=== PATIENT | female | born 1945 | race African-American/Black ===

== ENCOUNTER 2017-04-19 09:43 | Observation (INO) | payer OTHER ==
--- NOTE | 2017-04-19 09:52 | PDOC ---
Attending Attestation - Resident Resident Name: Evgeny Ventura - HPI HPI: 04/19/17 10:44 Pt presents to the ED complaining of the acute onset of tongue swelling. Patient has a history of severe allergic reactions in the past and also takes lisinopril. Patient states that she had one episode of vomiting yesterday, but denies any other associated symptoms. - Physicial Exam PE: 04/19/17 10:59 Agree with resident exam. PAtient is speaking in complete sentences without stridor. Tongue is edematous, but patient is able to open her mouth completely and I am able to see past her tongue to her uvula, which is also mildly swollen. - Critical Care Time Total Critical Care Time: 30 Critical Care Statement: The care of this patient involved high complexity decision making to prevent further life threatening deterioration of the patient 's condition and/or to evaluate & treat vital organ system(s) failure or risk of failure. - Medical Decision Making 04/19/17 11:02 Patient attributes the swelling to an allergic reaction, but given her STIVEN inhibitor use and her lack of associated symptoms, symptoms are most likely secondary to angioedema. Patient reports some improvement in her symptoms after epinephrine, benadryl and solumedrol by EMS. Will treat with pepcid and continue to monitor. given that she is able to speak in complete sentences and has no respiratory distress, and that her symptoms seem to be improving, I do not feel that she needs intubation at this time. Will continue to closely monitor in the ED and will admit for close monitoring.
--- NOTE | 2017-04-19 09:56 | PDOC ---
History of Present Illness - General Chief Complaint: Allergic Reaction Stated Complaint: ALLERGIC REACTION Time Seen by Provider: 04/19/17 09:52 - History of Present Illness Initial Comments: 04/19/17 10:10 72 yo F with h/o HTN who arrives from Urgent care with tongue swelling. Patient reports acute onset of tongue swelling this AM. States that she has had recent URI type illness for 24 hours and took Mucinex prior to going to sleep yesterday evening. Denies h/o adverse reaction to Mucinex. Also states that she has been on Lisinopril for past 2 years for HTN control. Denies SOB, Medrano, rash, wheezing, neck swelling/pain, muffled voice, lightheadedness, rash, LOC, chest pain, cough. Seen at urgent care 1 hour [employer] and received Epinephrine, Solumedrol , Diphehydramine, and NS. Swelling slightly improved. Denies h/o angioedema or intubations. Past History - Past Medical History Allergies/Adverse Reactions: Allergies Allergy/AdvReac Type Severity Reaction Status Date / Time chocolate flavor Allergy Verified 04/19/17 09:54 tomato Allergy Verified 04/19/17 09:54 Home Medications: Ambulatory Orders Aspirin 81 mg PO DAILY 04/19/17 Lisinopril [Prinivil] 5 mg PO DAILY 04/19/17 Tamoxifen Citrate 0 mg PO DAILY 04/19/17 Cancer: Yes (duong breast ca w/lumpectomy) COPD: No - Suicide/Smoking/Psychosocial Hx Smoking History: Never smoked Have you smoked in the past 12 months: No Information on smoking cessation initiated: No Hx Alcohol Use: No Drug/Substance Use Hx: No Substance Use Type: None Review of Systems - Review of Systems Comments:: 04/19/17 09:55 GENERAL/CONSTITUTIONAL: No fever or chills. No weakness. HEAD, EYES, EARS, NOSE AND THROAT: Tongue swelling. No change in vision. No ear pain or discharge. No sore throat.- CARDIOVASCULAR: No chest pain or shortness of breath RESPIRATORY: No cough, wheezing, or hemoptysis. GASTROINTESTINAL: No nausea, vomiting, diarrhea or constipation. GENITOURINARY: No dysuria, frequency, or change in urination. MUSCULOSKELETAL: No joint or muscle swelling or pain. No neck or back pain. SKIN: No rash NEUROLOGIC: No headache, vertigo, loss of consciousness, or change in strength/ sensation. ENDOCRINE: No increased thirst. No abnormal weight change HEMATOLOGIC/LYMPHATIC: No anemia, easy bleeding, or history of blood clots. ALLERGIC/IMMUNOLOGIC: No hives or skin allergy. 04/19/17 10:17 *Physical Exam - Vital Signs Last Vital Signs Temp Pulse Resp BP Pulse Ox 98 F 120 H 18 160/95 100 04/19/17 09:45 04/19/17 09:45 04/19/17 09:45 04/19/17 09:45 04/19/17 09:45 - Physical Exam Comments: 04/19/17 09:56 GENERAL: Awake, alert, and fully oriented, in no acute distress HEAD: No signs of trauma, normocephalic, atraumatic EYES: PERRLA, EOMI, sclera anicteric, conjunctiva clear ENT: Tongue and uvula swelling. Soft palate difficult to visualize.Hearing grossly normal, nares patent, oropharynx clear without exudates. Moist mucosa NECK: Absent stridor. Normal ROM, supple, no lymphadenopathy, JVD, or masses LUNGS: No distress, speaks full sentences, clear to auscultation bilaterally HEART: Regular rate and rhythm, normal S1 and S2, no murmurs, rubs or gallops, peripheral pulses normal and equal bilaterally. EXTREMITIES : Normal inspection, Normal range of motion, no edema. No clubbing or cyanosis. SKIN: Warm, Dry, normal turgor, no rashes or lesions noted. ED Treatment Course - LABORATORY CBC & Chemistry Diagram: 04/19/17 11:55 04/19/17 12:45 Medical Decision Making - Medical Decision Making 04/19/17 10:18 72 yo F with h/o HTN who arrives from Urgent care with tongue swelling this AM. Has had recent URI type illness for 24 hours and took Mucinex prior to going to sleep yesterday evening. Denies h/o adverse reaction to Mucinex. Endorses Lisinopril use for past 2 years for HTN control with absent incident of angioedema in past. Denies SOB, Medrano, rash, wheezing, neck swelling/pain, muffled voice, lightheadedness, rash, LOC, chest pain, cough. Seen at urgent care 1 hour [employer] and received Epinephrine, Solumedrol, Diphehydramine, and NS. Swelling slightly improved. Denies h/o prior intubations. Physical exam reveals tongue and uvula swelling with hard palate visualziation. Difficult to visualize soft palate. Absent neck swelling or stridor. Pulmonary exam benign. Patient midly tachycardic. Patient s/s consistent with STIVEN Inhibitor Angiodema vs. Allergic Angioedema. Will evaluate pt. for definitive airway management/ resp compromise. ED Course: CBC, CMP EKG EKG: Sinus tachycardia with absent HANNAH, STD, or TWI. Normal axis and interval durations. Anesthesiology consult. 04/19/17 13:24 Patient is speaking clear sentences, and breathing without diffculty. She does not need intubation at this time. 04/19/17 14:30 Patient admitted to inpatient Med/Surg. *DC/Admit/Observation/Transfer Diagnosis at time of Disposition: Angioedema due to angiotensin converting enzyme inhibitor (STIVEN-I) - Referrals Referrals: Johnie Petersen MD [Primary Care Provider] - - Patient Instructions - Post Discharge Activity
[2017-04-19] MEDS ORDERED: FAMOTIDINE IV 20 MG/12 ML VIAL IVPUSH ONE (10:13)
[2017-04-19] MEDS ORDERED: FAMOTIDINE 20 MG/50 ML IVPB 20 MG/50 ML MG IVPB ONE (10:15)
[2017-04-19 12:46] LABS: BASO % 0.2 % (0-2.0); HEMOGLOBIN 11.9 GM/dL (10.7-15.3); LYMPH % 9.2 % (8-40); MCH 28.6 pg (25.7-33.7); MCHC 31.4 g/dl (32.0-36.0); MEAN PLT VOLUME 9.6 fl (7.5-11.1); NEUT % 88.6 % (42.8-82.8); PLATELET COUNT 168 K/MM3 (134-434); RBC 4.17 M/mm3 (3.60-5.2); RDW 14.2 % (11.6-15.6); WHITE BLOOD COUNT 7.4 K/mm3 (4.0-10.0)
[2017-04-19 13:31] LABS: ALBUMIN 3.8 g/dl (3.4-5.0); ANION GAP 8 (8-16); BLOOD UREA NITROGEN 23 mg/dL (7-18); CALCIUM 8.5 mg/dL (8.5-10.1); CHLORIDE 109 mmol/L (98-107); CO2 25 mmol/L (21-32); CREATININE 1.3 mg/dL (0.55-1.02); GLUCOSE,RANDOM 101 mg/dL (74-106); POTASSIUM 4.4 mmol/L (3.5-5.1); SGOT/AST 14 U/L (15-37); SGPT/ALT 19 U/L (12-78); SODIUM 142 mmol/L (136-145)
[2017-04-19 13:32] LABS: ALK PHOS 53 U/L (45-117); BILIRUBIN,TOTAL 0.4 mg/dL (0.2-1.0); TOT PROT 7.9 g/dl (6.4-8.2)
[2017-04-19] MEDS ORDERED: SODIUM CHLORIDE 1,000 ML IV SCH ×2 (15:30→16:28)
[2017-04-19] MEDS ORDERED: SODIUM CHLORIDE 1,000 ML IV STA (16:28)
[2017-04-19] MEDS ORDERED: predniSONE 20 MG TABLET (UD) PO SCH (16:30)
--- NOTE | 2017-04-19 16:48 | HP ---
CHIEF COMPLAINT: tongue swelling HISTORY OF PRESENT ILLNESS: Patient is a 72 yo F with a PMHx of Breast cancer (s /p lumpectomy 2000) and HTN, came to the ED from the urgent care because of tongue swelling that started yesterday. Patient said she took mucinex last night , and 2 hours later she then took "airborne". After she took airborne she noticed the tongue swelling. Patient also ate some meat, tomatoes and potatos prior to tongue swelling. She is taking Lisinopril 5mg for 2 years. She states the urgent care gave her Epinephrine, solu-medrol, benadryl. 2 weeks ago patient had lip swelling when she ate ate potatoes. Patient denies SOB, fevers , rash, diarrhea, dizziness, chest pain and cough. She also denies exercising, bee stings, angioedema, hx of intubations and new meds. ER course was notable for: (1) Pepcid 20mg Recent Travel: n/a PAST MEDICAL HISTORY: HTN, left breast cancer in 2000 (lumpectomy), Right breast cancer 2008 (lumpectomy, on Tamoxifen) PAST SURGICAL HISTORY: n/a Social History: Smoking: denies Alcohol: occasionally Drugs: denies Family History: Allergies chocolate flavor Allergy (Verified 04/19/17 09:54) tomato Allergy (Verified 04/19/17 09:54) HOME MEDICATIONS: Home Medications Medication Instructions Recorded Aspirin 81 mg PO DAILY 04/19/17 Lisinopril [Prinivil] 5 mg PO DAILY 04/19/17 Tamoxifen Citrate 0 mg PO DAILY 04/19/17 REVIEW OF SYSTEMS CONSTITUTIONAL: Absent: fever, chills, diaphoresis, generalized weakness, malaise, loss of appetite, weight change HEENT: Absent: rhinorrhea, nasal congestion, throat pain, throat swelling, difficulty swallowing, mouth swelling, ear pain, eye pain, visual changes CARDIOVASCULAR: Absent: chest pain, syncope, palpitations, irregular heart rate, lightheadedness , peripheral edema RESPIRATORY: Absent: cough, shortness of breath, dyspnea with exertion, orthopnea, wheezing, stridor, hemoptysis GASTROINTESTINAL: Absent: abdominal pain, abdominal distension, nausea, vomiting, diarrhea, constipation, melena, hematochezia GENITOURINARY: Absent: dysuria, frequency, urgency, hesitancy, hematuria, flank pain, genital pain MUSCULOSKELETAL: Absent: myalgia, arthralgia, joint swelling, back pain, neck pain SKIN: Absent: rash, itching, pallor HEMATOLOGIC/IMMUNOLOGIC: Absent: easy bleeding, easy bruising, lymphadenopathy, frequent infections ENDOCRINE: Absent: unexplained weight gain, unexplained weight loss, heat intolerance, cold intolerance NEUROLOGIC: Absent: headache, focal weakness or paresthesias, dizziness, unsteady gait, seizure, mental status changes, bladder or bowel incontinence PSYCHIATRIC: Absent: anxiety, depression, suicidal or homicidal ideation, hallucinations. PHYSICAL EXAMINATION Vital Signs - 24 hr 04/19/17 04/19/17 04/19/17 09:45 10:45 14:45 Temperature 98 F Pulse Rate 120 H Pulse Rate [ 99 H 87 Apical] Respiratory 18 Rate Blood Pressure 160/95 Blood Pressure 139/83 139/64 [Right Arm] O2 Sat by Pulse 100 97 99 Oximetry (%) GENERAL: A/o x3, in no acute distress, able to speak full sentences. HEAD: Normal with no signs of trauma. EYES:extraocular movements intact, sclera anicteric, conjunctiva clear. No lid lag. EARS, NOSE, THROAT: tongue swelling, uvula with no swelling, dry mucous membranes NECK: supple LUNGS: Breath sounds equal, clear to auscultation bilaterally. No wheezes, and no crackles. No accessory muscle use. No stridor. HEART: tachy, normal S1 and S2 without murmur, rub or gallop. ABDOMEN: Soft, nontender, not distended, normoactive bowel sounds, UPPER EXTREMITIES: 2+ pulses, warm, well-perfused. No cyanosis. No clubbing. No peripheral edema. LOWER EXTREMITIES: 2+ pulses, warm, well-perfused. No calf tenderness. No peripheral edema. PSYCHIATRIC: Cooperative. Good eye contact. Appropriate mood and affect. Laboratory Results - last 24 hr 04/19/17 04/19/17 11:55 12:45 WBC 7.4 RBC 4.17 Hgb 11.9 Hct 38.0 MCV 91.0 MCH 28.6 MCHC 31.4 L RDW 14.2 Plt Count 168 MPV 9.6 Neutrophils % 88.6 H Lymphocytes % 9.2 Monocytes % 2.0 L Eosinophils % 0.0 Basophils % 0.2 Sodium 142 Potassium 4.4 Chloride 109 H Carbon Dioxide 25 Anion Gap 8 BUN 23 H Creatinine 1.3 H Creat Clearance w eGFR 40.26 Random Glucose 101 Calcium 8.5 Total Bilirubin 0.4 AST 14 L ALT 19 Alkaline Phosphatase 53 Total Protein 7.9 Albumin 3.8 ASSESSMENT/PLAN: 72 yo F with breast ca s/p lumpectomy, HTN on ACEI, admitted with angioedema. #Angioedema -Food allergen vs Herson Inhibitor -Given Epinephrine, Solu-Medrol, Benadryl in Urgent care -Start Prednisone 40mg -Benadryl 12.5 TID -Famotidine 20mg BID -Provide EPI-pen on DC #HTN -Hold lisinopril due to possible cause of angioedema -Order Norvasc 10 if HTN #FEN -IV fluids D5 NS @83 -WNL -NPO #DVT -SCDS Dispo: Admit to OBS, DC in 24 hours if symptoms improve. Visit type - Emergency Visit Emergency Visit: Yes ED Registration Date: 04/19/17 Care time: The patient presented to the Emergency Department on the above date and was hospitalized for further evaluation of their emergent condition. - New Patient This patient is new to me today: Yes Date on this admission: 04/20/17 - Critical Care Critical Care patient: No
[2017-04-19] MEDS ORDERED: predniSONE 20 MG TABLET (UD) ONE (18:11)
--- NOTE | 2017-04-19 18:49 | PN ---
Teaching Attending Note Name of Resident: Marc Santos ATTENDING PHYSICIAN STATEMENT Time of evaluation: 4;30 PM I saw and evaluated the patient. I reviewed the resident's note and discussed the case with the resident. I agree with the resident's findings and plan as documented. 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 Currently patient reports her tongue swelling is markedly improved, is able to talk,. Denies any dyspnea, wheezing, chest pain, stridor, abdominal or urinary symptoms. 12 point ROS done, neg except above. OBJECTIVE: Vital Signs Period Temp Pulse Resp BP Sys/Rhoades Pulse Ox Last 24 Hr 98 F 87-120 18-18 139-160/64-95 97-100 Intake & Output 04/16/17 04/17/17 04/18/17 04/19/17 23:59 23:59 23:59 23:59 Weight 148 lb GENERAL: Awake, alert, and fully oriented, in no acute distress. HEAD: Normal with no signs of trauma. EYES: Pupils equal, round and reactive to light, extraocular movements intact, sclera anicteric, conjunctiva clear. No lid lag. EARS, NOSE, THROAT:tongue swelling, mild uvular swelling, no deviation, posterior pharynx with no edema or discharge NECK: Normal range of motion, supple without lymphadenopathy, JVD, or masses. LUNGS: Breath sounds equal, clear to auscultation bilaterally. No wheezes, and no crackles. No accessory muscle use. No stridor noted HEART: Regular rate and rhythm, normal S1 and S2 without murmur, rub or gallop. ABDOMEN: Soft, nontender, not distended, normoactive bowel sounds, no guarding, no rebound, no masses. No hepatomegaly or splenomegaly. MUSCULOSKELETAL: Normal range of motion at all joints. No bony deformities or tenderness. No CVA tenderness. UPPER EXTREMITIES: 2+ pulses, warm, well-perfused. No cyanosis. No clubbing. No peripheral edema. LOWER EXTREMITIES: 2+ pulses, warm, well-perfused. No calf tenderness. No peripheral edema. NEUROLOGICAL: Cranial nerves II-XII intact. mild muffliing of speech (improved per patient, was not able to speak earlier and had to write down, currently with comprehensible speech) PSYCHIATRIC: Cooperative. Good eye contact. Appropriate mood and affect. SKIN: Warm, dry, normal turgor, no rashes or lesions noted, normal capillary refill. Home Medication List Medication Instructions Recorded Confirmed Type Aspirin 81 mg PO DAILY 04/19/17 04/19/17 History Lisinopril [Prinivil] 5 mg PO DAILY 04/19/17 04/19/17 History Tamoxifen Citrate 0 mg PO DAILY 04/19/17 04/19/17 History Active Medications Generic Name Dose Route Start Last Admin Trade Name Freq PRN Reason Stop Dose Admin Diphenhydramine HCl 12.5 mg 04/19/17 22:00 Benadryl Oral Solution - PO TID JAIME Famotidine/Sodium Chloride 20 mg in 50 mls @ 100 mls/hr 04/19/17 22:00 Pepcid 20 Mg Premixed Ivpb - IVPB BID JAIME Dextrose/Sodium Chloride 1,000 mls @ 83 mls/hr 04/19/17 19:00 D5-Ns - IV ASDIR JAIME Prednisone 40 mg 04/19/17 16:30 04/19/17 18:26 Deltasone - PO 40 mg DAILY JAIME Administration Laboratory Results - last 24 hr 04/19/17 04/19/17 11:55 12:45 WBC 7.4 RBC 4.17 Hgb 11.9 Hct 38.0 MCV 91.0 MCH 28.6 MCHC 31.4 L RDW 14.2 Plt Count 168 MPV 9.6 Neutrophils % 88.6 H Lymphocytes % 9.2 Monocytes % 2.0 L Eosinophils % 0.0 Basophils % 0.2 Sodium 142 Potassium 4.4 Chloride 109 H Carbon Dioxide 25 Anion Gap 8 BUN 23 H Creatinine 1.3 H Creat Clearance w eGFR 40.26 Random Glucose 101 Calcium 8.5 Total Bilirubin 0.4 AST 14 L ALT 19 Alkaline Phosphatase 53 Total Protein 7.9 Albumin 3.8 ASSESSMENT AND PLAN: 72 yof with breast ca s/p lumpectomy, HTN on ACEI, admitted with angioedema, ? food allergen vs ACEi related. -Angioedema, ?food allergen vs ACEi related -HTN -H/o breast cancer s/p lumpectomy Plan: improved per patient, hemodynamics stable, no stridor or respiratory symptoms. s/p epinephrine/solumedrol/benadyl/famotidine. Will place on prednisone 40 mg, benadryl standing and famotidine overnight. NPO till swelling improves. D/c ACEi, discussed with patient about not resuming unless told by a doctor. Will provide Epi-pen on dc. Gentle hydration while NPO. norvasc if hypertensive Dispo admit to obs, anticipate d/c in 24 hours if symptoms continue to improve. Plan discussed with patient and all questions answered. total admit time 50 min.
[2017-04-19] MEDS ORDERED: DEXTROSE 5%-NORMAL SALINE 1,000 ML IV SCH (19:00)
[2017-04-19] MEDS ORDERED: FAMOTIDINE 20 MG/50 ML IVPB 20 MG/50 ML MG IVPB SCH (22:00)
[2017-04-19] MEDS: diphenhydrAMINE HCL 12.5 MG/5 ML UNIT-DOSE CUPS PO SCH (22:00)
[2017-04-19] MEDS ORDERED: FAMOTIDINE IV 20 MG/12 ML VIAL IVPUSH SCH (22:00)
[2017-04-20 01:32] VITALS: BMI 27.3
[2017-04-20] MEDS: diphenhydrAMINE HCL 12.5 MG/5 ML UNIT-DOSE CUPS PO SCH (06:09)
--- NOTE | 2017-04-20 08:59 | DS ---
Physical Exam: SUBJECTIVE: Patient seen and examined OBJECTIVE: Vital Signs Period Temp Pulse Resp BP Sys/Rhoades Pulse Ox Last 24 Hr 97.8 F-98.4 F 78-120 18-20 136-160/64-95 97-100 PHYSICAL EXAM GENERAL: The patient is awake, alert, and fully oriented, in no acute distress. HEAD: Normal with no signs of trauma. EYES: PERRL, extraocular movements intact, sclera anicteric, conjunctiva clear. ENT: Ears normal, nares patent, oropharynx clear without exudates, moist mucous membranes. NECK: Trachea midline, full range of motion, supple. LUNGS: Breath sounds equal, clear to auscultation bilaterally, no wheezes, no crackles, no accessory muscle use. HEART: Regular rate and rhythm, S1, S2 without murmur, rub or gallop. ABDOMEN: Soft, nontender, nondistended, normoactive bowel sounds, no guarding, no rebound, no hepatosplenomegaly, no masses. EXTREMITIES: 2+ pulses, warm, well-perfused, no edema. NEUROLOGICAL: Cranial nerves II through XII grossly intact. Normal speech, gait not observed. PSYCH: Normal mood, normal affect. SKIN: Warm, dry, normal turgor, no rashes or lesions noted. LABS Laboratory Results - last 24 hr 04/19/17 04/19/17 11:55 12:45 WBC 7.4 RBC 4.17 Hgb 11.9 Hct 38.0 MCV 91.0 MCH 28.6 MCHC 31.4 L RDW 14.2 Plt Count 168 MPV 9.6 Neutrophils % 88.6 H Lymphocytes % 9.2 Monocytes % 2.0 L Eosinophils % 0.0 Basophils % 0.2 Sodium 142 Potassium 4.4 Chloride 109 H Carbon Dioxide 25 Anion Gap 8 BUN 23 H Creatinine 1.3 H Creat Clearance w eGFR 40.26 Random Glucose 101 Calcium 8.5 Total Bilirubin 0.4 AST 14 L ALT 19 Alkaline Phosphatase 53 Total Protein 7.9 Albumin 3.8 HOSPITAL COURSE: Date of Admission:04/19/17 Date of Discharge: 04/20/17 Minutes to complete discharge: 35 Discharge Summary Reason For Visit: ANGIOEDEMA DUE TOANGIOTENSIN CONVERTING ENZYME INH Current Active Problems Angioedema due to angiotensin converting enzyme inhibitor (STIVEN-I) (Acute) Hospital Course: patient was placed on prednisone 40 mg, benadyl and famotidine. Her tongue swelling completely resolved. No respiratory concerns were noted during her stay. Her lisinopril has been discontinued and patient has been informed about the same. She will be discharge on rapid prednisone taper and Epi-pen and detailed instructions have been provided. She plans to follow up with her PCP tomorrow for BP check and further management. - Instructions Diet, Activity, Other Instructions: You were admitted with tongue swelling, suspected angioedema due to food allergy vs your lisinopril. STOP TAKING YOUR LISINOPRIL. You will be on prednisone taper as follows: 30 mg today 20 mg tomorrow 10 mg on 04/22/2017, then off. You have been provided with Epi-pen prescription, inject as directed at the first sign of tongue or lip or face swelling or trouble breathing and call 911. You may need follow up with command and control specialist for the same. You may need to be started on alternative BP medication. Home BP monitoring till next doctor visit, notify doctor if SBP (upper BP) < 100 or persistently > 140 noted. Follow up with your doctor tomorrow as planned. Referrals: Johnie Petersen MD [Primary Care Provider] - Disposition: HOME - Home Medications Comprehensive Discharge Medication List: Ambulatory Orders Aspirin 81 mg PO DAILY 04/19/17 Tamoxifen Citrate 0 mg PO DAILY 04/19/17 Epinephrine (Epi-Pen 0.3MG) [Epipen 0.3MG -] 0.3 mg IM ASDIR #2 pens 04/20/17 Prednisone 10 mg PO ASDIR 3 Days #6 tablet 04/20/17 This patient is new to me today: No Emergency Visit: No Critical Care patient: No - Discharge Referral Referred to [facility] No
[2017-04-20 09:07] VITALS: BP 133/80; PULSE 78; TEMP 98.6
[2017-04-20 09:10] LABS: HEMATOCRIT 33.7 % (32.4-45.2); HEMOGLOBIN 10.7 GM/dL (10.7-15.3); MCH 28.9 pg (25.7-33.7); MCHC 31.7 g/dl (32.0-36.0); MEAN CELL VOLUME 91.2 fl (80-96); MEAN PLT VOLUME 10.1 fl (7.5-11.1); MONO % 5.6 % (3.8-10.2); NEUT % 75.4 % (42.8-82.8); PLATELET COUNT 167 K/MM3 (134-434); RBC 3.69 M/mm3 (3.60-5.2); RDW 14.4 % (11.6-15.6); WHITE BLOOD COUNT 8.3 K/mm3 (4.0-10.0)
[2017-04-20 09:34] LABS: ALBUMIN 3.3 g/dl (3.4-5.0); ANION GAP 8 (8-16); BILIRUBIN,TOTAL 0.3 mg/dL (0.2-1.0); BLOOD UREA NITROGEN 19 mg/dL (7-18); CALCIUM 7.8 mg/dL (8.5-10.1); CHLORIDE 113 mmol/L (98-107); CO2 23 mmol/L (21-32); GLUCOSE,RANDOM 101 mg/dL (74-106); MAGNESIUM 2.5 mg/dL (1.8-2.4); PHOSPHOROUS 2.5 mg/dL (2.5-4.9); POTASSIUM 4.5 mmol/L (3.5-5.1); SGOT/AST 13 U/L (15-37); SODIUM 144 mmol/L (136-145)
[2017-04-20 09:35] LABS: ALK PHOS 47 U/L (45-117); CREATININE 1.2 mg/dL (0.55-1.02); SGPT/ALT 19 U/L (12-78); TOT PROT 7.2 g/dl (6.4-8.2)
--- NOTE | 2017-04-20 16:07 | EKG ---
Test Reason : Blood Pressure : / mmHG Vent. Rate : 108 BPM Atrial Rate : 108 BPM P-R Int : 154 ms QRS Dur : 070 ms QT Int : 324 ms P-R-T Axes : 058 000 024 degrees QTc Int : 434 ms SINUS TACHYCARDIA POSSIBLE LEFT ATRIAL ENLARGEMENT BORDERLINE ECG NO PREVIOUS ECGS AVAILABLE Confirmed by Benja Payne ([id number]) on 04/20/2017 4:07:28 PM Referred By: Confirmed By:Benja Payne
== END 2017-04-20 21:05 | disposition home or self-care (01) ==
LOC: JER 09:43 → JERBED 14:32
PROVIDERS: ADMIT Hospitalist; ATTEND Hospitalist
PROC: 3E033GC Introduction of Other Therapeutic Substance into Peripheral Vein, Percutaneous Approach (ICD-10-PCS; principal; 2017-04-19)
PROC: 3E0337Z Introduction of Electrolytic and Water Balance Substance into Peripheral Vein, Percutaneous Approach (ICD-10-PCS; 2017-04-19)
DX: T78.3XXA Angioneurotic edema, initial encounter (principal); T46.4X5A Adverse effect of angiotensin-converting-enzyme inhibitors, initial encounter; I10 Essential (primary) hypertension; Z79.82 Long term (current) use of aspirin; Z85.3 Personal history of malignant neoplasm of breast
CPT/HCPCS: 36415; 80048; 80053; 83735; 84100; 85025; 93005; 93010; 96374; 96375; 99285-25; G0378